=== PATIENT | female | born 1985 | race Caucasian/White ===

== ENCOUNTER 2018-11-17 09:14 | Emergency (ER) | payer OTHER ==
[~2018-11-17] VITALS: Ht 165.1 cm; Wt 61.2 kg
--- NOTE | 2018-11-17 09:24 | NUR ---
PT AMBULATED TO ER BED 01
[2018-11-17 09:33] VITALS: BP 133/72
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
[2018-11-17] MEDS ORDERED: KETOROLAC 30 MG/ML VIAL IM ONE (09:55)
[2018-11-17] MEDS ORDERED: DIAZEPAM 5 MG TAB PO ONE (09:55)
--- NOTE | 2018-11-17 10:36 | NUR ---
Patient discharged with v/s stable. Written and verbal after care instructions given and explained. Patient alert, oriented and verbalized understanding of instructions. Ambulatory with steady gait. All questions addressed prior to discharge. ID band removed. Patient advised to follow up with PMD. Rx of Marrero, Valium, Zofran, and Ibuprofen given. Patient educated on indication of medication including possible reaction and side effects. Opportunity to ask questions provided and answered.
[2018-11-17 10:38] VITALS: BP 117/77
== END 2018-11-17 10:36 | disposition home or self-care (01) ==
LOC: MED 09:14
DX: R25.2 Cramp and spasm (principal); M54.9 Dorsalgia, unspecified; V89.2XXA Person injured in unspecified motor-vehicle accident, traffic, initial encounter; Y93.89 Activity, other specified; Y92.89 Other specified places as the place of occurrence of the external cause; Y99.8 Other external cause status
CPT/HCPCS: 81002; 81025; 96372; 99283; J1885